=== PATIENT | male | born 2000 | race Caucasian/White ===

== ENCOUNTER 2019-01-20 00:38 | Emergency (ER) | payer SELFPAY ==
[~2019-01-20] VITALS: Ht 185.4 cm; Wt 145.5 kg
[2019-01-20 00:51] VITALS: BP 154/78; TEMP 98.4
[2019-01-20] MEDS ORDERED: PREDNISONE20 MG PO (01:39)
[2019-01-20 01:50] VITALS: PULSE 104
== END 2019-01-20 01:50 | disposition home or self-care (01) ==
LOC: COL.ER 00:38
DX: J45.901 Unspecified asthma with (acute) exacerbation (principal); Z90.89 Acquired absence of other organs
CPT/HCPCS: J7512

== ENCOUNTER 2019-04-19 00:57 | Emergency (ER) | payer OTHER ==
[~2019-04-19] VITALS: Ht 185.4 cm; Wt 154.5 kg
[~2019-04-19 00:57] MED LIST: PREDNISONE20 MG PO
[2019-04-19 00:59] VITALS: BP 163/89; TEMP 98.6
[2019-04-19] MEDS ORDERED: PROAIR HFA0.09 MG/AC IH (01:31)
[2019-04-19] MEDS ORDERED: PREDNISONE20 MG PO (01:33)
[2019-04-19 02:09] VITALS: PULSE 86
== END 2019-04-19 02:09 | disposition home or self-care (01) ==
LOC: COL.ER 00:57
DX: J45.901 Unspecified asthma with (acute) exacerbation (principal)
CPT/HCPCS: J7512

== ENCOUNTER 2020-02-01 05:13 | Emergency (ER) | payer OTHER ==
[~2020-02-01] VITALS: Ht 185.4 cm; Wt 145.5 kg
[~2020-02-01 05:13] MED LIST changes: +PROAIR HFA0.09 MG/AC IH
[2020-02-01 05:18] VITALS: TEMP 97.8
[2020-02-01] MEDS ORDERED: PREDNISONE20 MG PO (05:41)
[2020-02-01] MEDS ORDERED: PROAIR HFA0.09 MG/AC IH (06:32)
[2020-02-01 06:56] VITALS: BP 138/95; PULSE 84
== END 2020-02-01 07:00 | disposition home or self-care (01) ==
LOC: COL.ER 05:13
DX: J45.901 Unspecified asthma with (acute) exacerbation (principal); Z20.828 Contact with and (suspected) exposure to other viral communicable diseases; Z79.51 Long term (current) use of inhaled steroids
CPT/HCPCS: J2930; J3475

== ENCOUNTER 2023-09-19 11:17 | Emergency (ER) | payer OTHER ==
[~2023-09-19] VITALS: Ht 182.9 cm; Wt 125.0 kg
[2023-09-19 11:51] LABS: COLLECTION METHOD CLEAN CATCH
[2023-09-19] MEDS ORDERED: Doxycycline Monohydrate 100 MG CAP PO ONE (12:00)
[2023-09-19] MEDS ORDERED: cefTRIAXone 1 G,Lidocaine PF 1% 2.1 ML IM ONE (12:00)
[2023-09-19 12:02] LABS: URINE APPEARANCE CLEAR (CLEAR/HAZY); URINE BLOOD NEGATIVE (NEGATIVE); URINE COLOR YELLOW (YELLOW); URINE GLUCOSE NEGATIVE (NEGATIVE); URINE KETONE NEGATIVE (NEGATIVE); URINE NITRATE NEGATIVE (NEGATIVE); URINE PROTEIN(semi-quant) NEGATIVE (NEGATIVE); URINE UROBILINOGEN 0.2 E.U/dL (0.2-1.0)
[2023-09-19] MEDS ORDERED: DOXYCYCLINE HY100 MG PO (12:31)
[2023-09-19 15:10] VITALS: BP 126/79; PULSE 74; TEMP 98.2
== END 2023-09-19 15:10 | disposition home or self-care (01) ==
LOC: COL.ER 11:17
PROVIDERS: Physician Assistant
DX: N45.1 Epididymitis (principal); F17.210 Nicotine dependence, cigarettes, uncomplicated; F17.290 Nicotine dependence, other tobacco product, uncomplicated
CPT/HCPCS: J0696